=== PATIENT | male | born 1980 | race Caucasian/White ===

== ENCOUNTER 2017-06-04 21:36 | Emergency (ER) | payer MEDICAID, OTHER ==
[2017-06-04] MEDS: HYDROCODONE/APAP (5/325) TAB PO (23:04)
== END 2017-06-04 23:08 | disposition home or self-care (01) ==
LOC: FTE 21:36
DX: H66.93 Otitis media, unspecified, bilateral (principal)
CPT/HCPCS: 99283; Z7502